=== PATIENT | female | born 1960 | race African-American/Black ===

== ENCOUNTER 2017-12-14 15:58 | Emergency (ER) | payer SELFPAY ==
[2017-12-14] MEDS ORDERED: Ketorolac Tromethamine 30 MG/ML VIAL ONE (16:40)
[2017-12-14] MEDS ORDERED: Diazepam 5 MG TAB ONE (16:42)
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
== END 2017-12-14 17:56 | disposition home or self-care (01) ==
LOC: ERS 15:58
DX: S16.1XXA Strain of muscle, fascia and tendon at neck level, initial encounter (principal); M25.511 Pain in right shoulder; F17.210 Nicotine dependence, cigarettes, uncomplicated; V89.2XXA Person injured in unspecified motor-vehicle accident, traffic, initial encounter
CPT/HCPCS: 72040; 96372; 99406; J1885

== ENCOUNTER 2017-12-23 09:58 | Observation (INO) | payer SELFPAY ==
[2017-12-23 10:46] LABS: #Basophils 0.1 thou/uL (0.0-0.2); #Eosinphils 0.1 thou/uL (0.0-0.7); #Lymphocytes 1.7 thou/uL (1.20-3.40); #Monocytes 0.5 thou/uL (0.11-0.59); #Neutrophils 5.4 thou/uL (1.40-6.50); %Basophils 1.1 % (0.0-1.0); %Eosinophils 0.7 % (0.0-10.0); %Lymphocytes 21.6 % (21.0-51.0); %Monocytes 6.3 % (0.0-10.0); %Neutrophils 70.3 % (42.0-75.0); Hemoglobin 12.1 g/dL (12.0-16.0); Mean Corpuscular HGB CONC 31.6 g/dL (32.0-36.0); Mean Corpuscular Hemoglobin 28.3 pg (27.0-31.0); Mean Corpuscular Volume 89.6 fL (78.0-98.0); Mean Platelet Volume 8.4 fL (7.4-10.4); Platelet Count 217 thou/uL (130-400); RBC Distribution Width 13.1 % (11.5-14.5); Red Blood Cell (RBC) Count 4.28 mill/uL (4.20-5.40); White Blood Cell (WBC) Count 7.7 thou/uL (4.8-10.8)
[2017-12-23 11:09] LABS: ALT (SGPT) 19 U/L (8-55); AST (SGOT) 21 U/L (5-34); Albumin 4.1 g/dL (3.5-5.0); Alkaline Phosphatase 70 U/L (40-150); Anion Gap 10 mmol/L (10-20); BUN (Urea Nitrogen) 13 mg/dL (9.8-20.1); Bilirubin, Total 0.5 mg/dL (0.2-1.2); Calc. Creatinine Clearance 0 mL/min (70-130); Calcium 9.1 mg/dL (7.8-10.44); Carbon Dioxide 22 mmol/L (22-29); Chloride 109 mmol/L (98-107); Estimated GFR-MDRD Greater than 90; Globulin 3.7 g/dL (2.4-3.5); Glucose 99 mg/dL (70-105); Potassium 3.7 mmol/L (3.5-5.1); Protein, Total 7.8 g/dL (6.0-8.3); Sodium 137 mmol/L (136-145)
[2017-12-23 11:12] LABS: Troponin I Less than 0.010 ng/mL (< 0.028)
--- NOTE | 2017-12-23 11:14 | RAD ---
CHEST ONE VIEW: HISTORY: Chest pain. FINDINGS: The cardiac silhouette is magnified by projection. The pulmonary vasculature is unremarkable. The m ediastinum is midline. No lobar consolidation or evidence of pneumothorax. IMPRESSION: No active cardiopulmonary abnormalities demonstrated. POS: [facility]
[2017-12-23 11:36] LABS: CKMB 9.4 ng/mL (0-6.6)
[2017-12-23] MEDS ORDERED: Cyclobenzaprine 10 MG TAB PO PRN (14:13)
[2017-12-23] MEDS ORDERED: Nitroglycerin 2% Ointment 1 INCH/1 GM Packet TOP PRN (14:17)
[2017-12-23] MEDS ORDERED: traMADol HCl 50 MG TAB PO PRN (14:23)
[2017-12-23 14:57] VITALS: BMI 31.0
[2017-12-23] MEDS: Ketorolac Tromethamine 30 MG/ML VIAL IVP SCH ×2 (15:36→20:51)
[2017-12-23 16:49] LABS: Cardiac Risk 3.8 (Less than 4.5)
[2017-12-23 16:55] LABS: Troponin I Less than 0.010 ng/mL (< 0.028)
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
[2017-12-23 19:28] LABS: Troponin I Less than 0.010 ng/mL (< 0.028)
[2017-12-23] MEDS: Heparin 5,000 UNITS/ML VIAL SC SCH (20:52)
[2017-12-23] MEDS ORDERED: Atorvastatin Calcium 40 MG TAB PO SCH (21:00)
[2017-12-24] MEDS: Ketorolac Tromethamine 30 MG/ML VIAL IVP SCH ×2 (03:44→08:05)
[2017-12-24] MEDS ORDERED: Nitroglycerin 0.4 MG TAB (25 Tab Bottle) ONE (08:02)
[2017-12-24] MEDS: Heparin 5,000 UNITS/ML VIAL SC SCH (08:08)
[2017-12-24 08:15] VITALS: BP 141/77; TEMP 97.8
[2017-12-24] MEDS ORDERED: Aspirin 325 mg Enteric Coated Tablet PO SCH (09:00)
[2017-12-24 13:36] LABS: Troponin I Less than 0.010 ng/mL (< 0.028)
--- NOTE | 2017-12-24 13:47 | NM ---
NUCLEAR MEDICINE CARDIAC STRESS WITH EF AND WALL MOTION: HISTORY: Chest pain. COMPARISON: None. TECHNIQUE: The patient was administered 27 mCi of Technetium 99m sestamibi for rest imaging and 33 mCi of Techne tium 99m sestamibi for stress imaging. Cardiac gating is performed. FINDINGS: Homogeneous distribution of the radiotracer in the left ventricle. No fixed defect or reversibility. TID is 1.07. End-diastolic volume is 87 mL. End-systolic volume is 31 mL. CARDIAC GATING: Normal motion and thickening. A 65% ejection fraction. IMPRESSION: 1. No evidence of reversibility or fixed defect. 2. 65% ejection fraction. POS: [facility]
[2017-12-24] MEDS ORDERED: ADENOSINE 60 MG/20 ML VIAL ONE (15:20)
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
--- NOTE | 2017-12-25 08:29 | EKG ---
Test Reason : Blood Pressure : / mmHG Vent. Rate : 069 BPM Atrial Rate : 069 BPM P-R Int : 174 ms QRS Dur : 086 ms QT Int : 406 ms P-R-T Axes : 066 -02 008 degrees QTc Int : 435 ms Normal sinus rhythm Minimal voltage criteria for LVH, may be normal variant Borderline ECG Confirmed by MADISYN HERRERA ([id number]) on 12/25/2017 8:29:15 AM Referred By: Confirmed By:MADISYN HERRERA
--- NOTE | 2017-12-26 08:32 | STRESS ---
Acquisition Time: 2017-12-24 11:08:56 Total Exercise Time: 00:04:00 Test Indications: CHEST PAIN Medications: Protocol: ADENOSINE Max HR: 091 BPM 56% of Pred: 162 BPM Max BP: 142/070 mmHG Max Work Load: 1.0 METS RESTING ECG: SINUS BRADYCARDIA AT 52 BPM WITH EARLY REPOLARIZATION SYMPTOMS: DYSPNEA NORMAL BP RESPONSE ECTOPY: NONE ECG STRESS: NO SIGNIFICANT CHANGES INTERPRETATION: NEGATIVE ECG/AWAIT NUCLEAR IMAGES FOR DEFINITIVE DIAGNOSIS Confirmed by AJAY KIDD ([id number]) on 12/26/2017 8:32:20 AM Referred By: MD Marcos CAMARILLO Confirmed By:AJAY KIDD
--- NOTE | 2017-12-29 06:02 | EKG ---
Test Reason : Blood Pressure : / mmHG Vent. Rate : 053 BPM Atrial Rate : 053 BPM P-R Int : 168 ms QRS Dur : 082 ms QT Int : 428 ms P-R-T Axes : 039 007 009 degrees QTc Int : 401 ms Sinus bradycardia with sinus arrhythmia Otherwise normal ECG When compared with ECG of 23-DEC-2017 10:09, No significant change was found Confirmed by MADISYN HERRERA ([id number]) on 12/29/2017 6:02:26 AM Referred By: MARQUISE Confirmed By:MADISYN HERRERA
== END 2017-12-24 15:03 | disposition home or self-care (01) ==
LOC: ERS 09:58 → 2SW 13:00
PROVIDERS: ADMIT Internal Medicine; ATTEND Internal Medicine
DX: R07.89 Other chest pain (principal); E78.5 Hyperlipidemia, unspecified; I10 Essential (primary) hypertension; F17.210 Nicotine dependence, cigarettes, uncomplicated; E78.00 Pure hypercholesterolemia, unspecified; Z91.041 Radiographic dye allergy status
CPT/HCPCS: 36415; 71045; 78452; 80053; 80061; 82553; 83880; 84484; 85025; 93005; 93010; 93017; 96374; 96376; A9500; G0378; J0153; J1644; J1885